=== PATIENT | female | born 1960 | race Caucasian/White ===

== ENCOUNTER 2019-05-20 04:54 | Inpatient (IN) ==
--- NOTE | 2019-04-17 08:47 | PAT Medication Instructions ---
Medication Instructions Date of Service April 17, 2019 Home Medications Probiotic 1 dose PO QAM Vitamin D3 1 dose PO QAM albuterol sulfate [ProAir HFA] 2 puff INHALATION Q6H NEEDED aspirin 81 mg PO QAM atorvastatin 40 mg PO PM budesonide-formoterol [Symbicort] 2 puff INHALATION BID cetirizine 10 mg PO DAILY NEEDED escitalopram oxalate [Lexapro] 10 mg PO QPM esomeprazole magnesium [Nexium] 20 mg PO BID furosemide 20 mg PO QAM gabapentin 600 mg PO TID levothyroxine 112 mcg PO QAM lorazepam 0.5 mg BUCCAL QAM melatonin 1 dose PO HS metoprolol tartrate 12.5 mg PO BID potassium chloride 20 meq PO TID rizatriptan [Maxalt-POWER TECHNICIAN] 5 mg PO DAILY NEEDED DO NOT take the morning of surgery Probiotic 1 dose PO QAM Vitamin D3 1 dose PO QAM cetirizine 10 mg PO DAILY NEEDED furosemide 20 mg PO QAM potassium chloride 20 meq PO TID Take morning of surgery With a small sip of water, OTHERWISE NOTHING TO EAT OR DRINK AFTER MIDNIGHT: albuterol sulfate [ProAir HFA] 2 puff INHALATION Q6H NEEDED (if needed; bring to hospital) aspirin 81 mg PO QAM budesonide-formoterol [Symbicort] 2 puff INHALATION BID esomeprazole magnesium [Nexium] 20 mg PO BID gabapentin 600 mg PO TID levothyroxine 112 mcg PO QAM lorazepam 0.5 mg BUCCAL QAM metoprolol tartrate 12.5 mg PO BID rizatriptan [Maxalt-POWER TECHNICIAN] 5 mg PO DAILY NEEDED (if needed) Take evening before surgery albuterol sulfate [ProAir HFA] 2 puff INHALATION Q6H NEEDED (if needed) atorvastatin 40 mg PO PM budesonide-formoterol [Symbicort] 2 puff INHALATION BID escitalopram oxalate [Lexapro] 10 mg PO QPM esomeprazole magnesium [Nexium] 20 mg PO BID gabapentin 600 mg PO TID melatonin 1 dose PO HS metoprolol tartrate 12.5 mg PO BID potassium chloride 20 meq PO TID rizatriptan [Maxalt-POWER TECHNICIAN] 5 mg PO DAILY NEEDED (if needed) Other Notes If you have any questions please call us at [phone] or [phone] or [phone] or [phone]
--- NOTE | 2019-04-17 11:15 | Anesthesiology Consultation ---
Date of Service April 17, 2019 Assessment & Plan (1) Encounter for pre-operative examination: - No previous anesthesia records available. Chart Review Chart Review: Acceptable Risk for Surgery and Patient seen in Pre Admission Carri ting Consults Requested cardiac (Dr. Jolley (05/06)) Patient was seen by cardiology on 05/06/19 for preoperative cardiology clearance. A stress test was ordered and done 05/15/19 to help further evaluate. A clearance note was written on 05/18 that states " Mrs. Мария Bernard is cleared to have her upcoming right total knee arthroplasty on 05/20/19." Teaching & Discussion Pre-Anesthesia Teaching/Discussion Notes: Instructed NPO after midnight before surgery, except medications with 15 cc of water. Medication instructions provided according to the PAT guidelines. History Surgery Operation Date: 05/20/19 07:00 Proposed Procedures p Right Total Knee Arthroplasty - Wesley Ballesteros MD Height/Weight Height: 5 ft 4 in Weight: 103 kg Allergies Allergy/AdvReac Type Severity Reaction Status Date / Time benzyl alcohol Allergy Hives Verified 04/16/19 16:34 ciprofloxacin Allergy Hives Verified 04/16/19 16:31 clarithromycin Allergy Hives Verified 04/16/19 16:31 doxycycline Allergy Hives Verified 04/16/19 16:31 erythromycin base Allergy Hives Verified 04/16/19 16:31 nitrofurantoin Allergy Hives Verified 04/16/19 16:31 Sulfa (Sulfonamide Allergy Hives Verified 04/16/19 16:31 Antibiotics) topiramate Allergy Hives Verified 04/16/19 16:31 codeine AdvReac Verified 04/16/19 16:31 Medications Home Medications Medication Instructions Recorded Confirmed Last Taken Probiotic 1 dose PO QAM 04/16/19 04/16/19 Unknown Vitamin D3 1 dose PO QAM 04/16/19 04/16/19 Unknown albuterol sulfate [ProAir HFA] 2 puff INHALATION Q6H PRN 04/16/19 04/16/19 Unknown aspirin 81 mg PO QAM 04/16/19 04/16/19 Unknown atorvastatin 40 mg PO PM 04/16/19 04/16/19 Unknown budesonide-formoterol [Symbicort] 2 puff INHALATION BID 04/16/19 04/16/19 Unknown cetirizine 10 mg PO DAILY PRN 04/16/19 04/16/19 Unknown escitalopram oxalate [Lexapro] 10 mg PO QPM 04/16/19 04/16/19 Unknown esomeprazole magnesium [Nexium] 20 mg PO BID 04/16/19 04/16/19 Unknown furosemide 20 mg PO QAM 04/16/19 04/16/19 Unknown gabapentin 600 mg PO TID 04/16/19 04/16/19 Unknown levothyroxine 112 mcg PO QAM 04/16/19 04/16/19 Unknown lorazepam 0.5 mg BUCCAL QAM 04/16/19 04/16/19 Unknown melatonin 1 dose PO HS 04/16/19 04/16/19 Unknown metoprolol tartrate 12.5 mg PO BID 04/16/19 04/16/19 Unknown potassium chloride 20 meq PO TID 04/16/19 04/16/19 Unknown rizatriptan [Maxalt-BARREL CLEANER] 5 mg PO DAILY PRN 04/16/19 04/16/19 Unknown Past Medical History Medical History Anxiety Asthma USES PRN INH 1 X WK ON AVG Borderline glaucoma Depression GERD (gastroesophageal reflux disease) Hyperlipidemia Hypertension Hypothyroidism Migraine Osteoarthritis Vertigo Exercise / Class Metabolic Activity II 4-5 Yardwork/Stairs/Walk up hill (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 Able to climb FOS with knee pain. Denies CP or SOB. ) Past Family History Family History Mother Family history of diabetes mellitus Grandmother (Maternal) Family history of diabetes mellitus Past Surgical History Surgical History History of D&C History of cardiac cath 09/2016 - [facility] - CP, FAILED STRESS TEST - COMPLICATIONS DURING CATH - PT REPORTS THEY NICKED ARTERY DURING PROCEDURE --> CABG - FOLLOWS W/ DR. JOLLEY ([facility]) History of cholecystectomy History of coronary artery bypass graft 09/2016 - [facility] - 3 VESSELS History of esophagogastroduodenoscopy (EGD) History of hysterectomy History of hysteroscopy History of tooth extraction History of tubal ligation Nausea and vomiting after administration of anesthetic agent Past Anesthesia History No Hx of Anesthesia Complications and No Family Hx of Anesthesia Complications History of PONV History of PONV and Hx of Motion Sickness Social History Smoking Status: Never smoker Do You Dip or Chew Tobacco: No Hx Alcohol Use: No Hx Substance Use: No substance use type: does not use Review of Systems Patient denies chest pain, shortness of breath, dyspnea on exertion, reflux, cough, wheezing, palpitations. +Joint Pain (Knee) +Acid Reflux (Controlled with current medications) Physical Exam Vital Signs BP: 137/82 P: 55 R: 16 T: 98.0 SPO2: 97% Constitutional + obese ENMT Thyromental Distance: > or= 3.5 Finger Breadths (3.5) Mallampati Class: II Neck normal visual inspection and trachea midline; neck extension not limited Respiratory normal respiratory effort Auscultation: lungs clear to auscultation bilaterally Cardiovascular Rate/Rhythm: regular rate and regular rhythm Heart Sounds: no murmur Vessels: no carotid bruit Neurologic moves all extremities Psychiatric Orientation: alert and oriented x 3 Testing Laboratory Results 04/17/19 11:28 04/17/19 11:28 PT 10.6 Seconds (9.0-12.0) 04/17/19 11:28 INR 1.0 (0.9-1.1) 04/17/19 11:28 APTT 28.4 Seconds (21.0-31.0) 04/17/19 11:28 Hemoglobin A1c 6.1 % (4.5-5.6) H 04/17/19 11:28 Urine Color Yellow 04/17/19 11:28 Urine Appearance Clear (Clear) 04/17/19 11:28 Urine pH 7.0 (4.5-7.5) 04/17/19 11:28 Ur Specific [place] 1.018 (1.000-1.030) 04/17/19 11:28 Urine Protein Negative (Negative) 04/17/19 11:28 Urine Glucose (UA) Negative (Negative) 04/17/19 11:28 Urine Ketones Negative (Negative) 04/17/19 11:28 Urine Nitrite Negative (Negative) 04/17/19 11:28 Ur Leukocyte Esterase Negative (Negative) 04/17/19 11:28 Blood Type O Positive 04/17/19 11:28 Antibody Screen NEGATIVE 04/17/19 11:28 Electrocardiogram Date: 09/23/18 Findings: + NSR @ (66) and + no change from (06/02/18) Cannot rule out anterior infarct (cited on or before 10/28/16) Chest X-Ray Date: 09/23/18 Stable radiographic appearance of chest without new parenchymal consolidation. Echocardiogram Date: 06/03/18 EF: 60% The right ventricular cavity size is normal (basal dimension <4.2cm RV apical 4 chamber view) The right ventricular systolic function is qualitatively normal No significant valvular disease is present No pericardial effusion is noted Normal IVC size and collapsability with sniff indicates a normal right atrial pressure of 3mmHg. Stress Test Date: 05/15/19 Type: nuclear Findings: + WNL; no ischemia Resting EF: 73% Gated SPECT images reveals normal myocardial thickening and wall motion. This was a walking pharmaceutical study. TID normal at 0.75. This is a normal study. Lexiscan nuclear cardiac stress test negative for ischemia. Technical quality of the study is good. EKG portion negative for ischemia.
[2019-04-17 12:53] LABS: Basophils # (auto) 0.03 K/uL (0-0.2); Basophils % (auto) 0.4 %; Eosinophils # (auto) 0.16 K/uL (0-0.5); Hematocrit (blood only) 41.3 % (37-47); Hemoglobin 14.1 g/dL (12.0-16.0); Immature Granulocytes # (auto) 0.01 K/uL (0.00-0.02); Immature Granulocytes % (auto) 0.1 %; Lymphocytes # (auto) 2.02 K/uL (1.2-3.4); Lymphocytes % (auto) 25.8 %; Mean Corpuscular Hgb Conc 34.1 g/dL (32-36); Mean Corpuscular Volume 88.2 fL (80-100); Mean Platelet Volume 10.1 fL (7.4-10.4); Monocytes # (auto) 0.52 K/uL (0.11-0.59); Monocytes % (auto) 6.6 %; Neutrophils % (auto) 65.1 %; Platelet Count 244 K/uL (130-400); RDW Coefficient of Variation 13.6 % (11.5-14.5); RDW Standard Deviation 43.8 fL (36.4-46.3); Red Blood Count 4.68 M/uL (4.2-5.4); White Blood Count 7.84 K/uL (4.8-10.8)
[2019-04-17 12:57] LABS: Appearance Urine Clear (Clear); Bilirubin Urine Negative (Negative); Blood Urine Negative (Negative); Color Urine Yellow; Glucose Urine UA Negative (Negative); Ketones Urine Negative (Negative); Leukocyte Esterase Urine Negative (Negative); Nitrite Urine Negative (Negative); Protein Urine Negative (Negative); Specific Gravity Urine 1.018 (1.000-1.030); Urobilinogen Urine Negative (Negative)
[2019-04-17 13:00] LABS: Albumin Level 3.8 gm/dl (3.4-5.0); BUN Creatinine Ratio 9.5 (10-20); Calcium 9.9 mg/dl (8.5-10.1); Creatinine Clr Calc Pharmacy 76.8 ml/min; Est GFR (African American) 77.5; Est GFR (Non-African American) 66.9
[2019-04-17 13:04] LABS: Partial Thromboplastin Time 28.4 Seconds (21.0-31.0); Prothrombin Time 10.6 Seconds (9.0-12.0)
[2019-04-17 13:49] LABS: Estimated Average Glucose 128 mg/dl; Hemoglobin A1C 6.1 % (4.5-5.6)
--- NOTE | 2019-05-19 19:20 | History and Physical Report ---
DATE OF ADMISSION: 05/20/2019 CHIEF COMPLAINT: Chronic right knee pain. HISTORY OF PRESENT ILLNESS: This is a 58-year-old female patient of Dr. Ballesteros'alo complaining of chronic right knee pain, longstanding, now progressively getting worse. The patient has failed conservative treatment including intra-articular injections, home exercise program. The patient cannot take anti-inflammatories due to the use of Plavix. The patient has increased pain with weightbearing activities and her pain does interfere with her activities of daily living. The patient has been diagnosed with end-stage osteoarthritis per clinical and radiographic exams. The patient wished to proceed with a right total knee arthroplasty. PAST MEDICAL HISTORY: Hypertension, hypercholesterolemia, asthma, sleep apnea, anxiety, hypothyroidism, acid reflux, and obesity. SOCIAL HISTORY: Nonsmoker, nondrinker. PAST SURGICAL HISTORY: Tubal ligation, cholecystectomy and triple bypass surgery. FAMILY HISTORY: Noncontributory. REVIEW OF SYSTEMS: Chronic right knee pain and instability. Otherwise, denies any shortness of breath, chest pain, nausea, vomiting or any joint complaints. MEDICATIONS: 1. Levoxyl 112 mcg daily. 2. Symbicort 160/4.5 actuation 2 puffs twice daily. 3. ProAir 90 mcg actuation 2 puffs every 4-6 hours as needed. 4. Meclizine 25 mg 3 times daily as needed. 5. Probiotic daily as needed. 6. Vitamin D3 2000 international units daily. 7. Lipitor 40 mg daily. 8. Aspirin 81 mg daily. 9. Tylenol 500 mg daily as needed. 10. Gabapentin 600 mg 3 times daily. 11. Ativan 0.5 mg 3 times daily as needed. 12. Melatonin 2.5 mg tablets 2 tablets at night. 13. Metoprolol 25 mg 1/2 tablet twice daily. 14. Zofran 4 mg every 8 hours as needed. 15. Maxalt 5 mg as needed. 16. Potassium chloride 20 mEq 3 times daily. 17. Lasix 20 mg daily. 18. Lexapro 10 mg daily. 19. Flonase 50 mcg actuation 1 spray each nostril daily. 20. Calcium 500 mg daily. 21. Nexium 20 mg twice daily. ALLERGIES: BENZOYL ALCOHOL, CLARITHROMYCIN, CODEINE, DOXYCYCLINE, ERYTHROMYCIN, PENICILLIN, SULFA, AND TOPIRAMATE. PHYSICAL EXAMINATION: GENERAL: Well-developed, well-nourished 58-year-old female in no acute distress. She is alert and oriented x3 and pleasant. HEENT: Normocephalic, atraumatic. Extraocular motions are intact. Pupils are equal and reactive to light. HEART: Regular rate and rhythm, no murmurs appreciated. LUNGS: Clear. ABDOMEN: Soft, nontender, bowel sounds present. EXTREMITIES: Right knee reveals a limited range of motion of 0-125 degrees with a varus deformity. The patient has medial joint line tenderness. She has crepitation with passive range of motion. She has 5/5 strength with pain. NEUROLOGIC: Neurovascularly, she is intact in her right lower extremity. DIAGNOSES: Right knee end-stage osteoarthritis, hypertension, hypercholesterolemia, asthma, sleep apnea, anxiety, hypothyroidism, osteoarthritis, acid reflux, obesity. PLAN: The patient was advised of her diagnosis. Indications, risks, benefits, postop course have all been reviewed. The patient wished to proceed with a right total knee arthroplasty. Necessary consent forms, preoperative testing and clearances will be obtained.
[2019-05-20] MEDS ORDERED: SCOPOLAMINE 1.5 MG TDSY TD SCH (06:00)
[2019-05-20] MEDS ORDERED: GABAPENTIN 600 MG DOSE PO SCH (06:00)
[2019-05-20] MEDS ORDERED: ACETAMINOPHEN 500 MG TAB PO SCH (06:00)
[2019-05-20] MEDS ORDERED: LR 500ML BOLUS, THEN 15ML/HR IV SCH (06:00)
[2019-05-20] MEDS ORDERED: dexAMETHasone 4 MG TAB PO SCH (06:00)
[2019-05-20] MEDS ORDERED: ROPIVACAINE 0.5% HCL/PF 150 MG, BUPIVACAINE 0.5% MPF 30 ML, EPINEPHrine 30MG/30ML (OR U... INSTIL SCH (06:00)
[2019-05-20] MEDS ORDERED: FAMOTIDINE 20 MG TAB PO SCH (06:00)
[2019-05-20] MEDS ORDERED: VANCOMYCIN HCL 1,500 MG in SODIUM CHLORIDE 0.9% 500 ML IV SCH ×2 (06:00→17:00)
[2019-05-20] MEDS ORDERED: METOCLOPRAMIDE HCL 10 MG TABLET PO SCH (06:00)
[2019-05-20] MEDS ORDERED: BUPIVACAINE 0.5 % 5 MG/1 ML PF 10ML VIAL ONE (06:21)
[2019-05-20] MEDS ORDERED: ROPIVACAINE 0.5% 5 MG/ML 30 ML VIAL ONE (06:22)
[2019-05-20] MEDS ORDERED: MIDAZOLAM HCL 1 MG/ML 2ML VIAL ONE ×2 (06:32)
[2019-05-20] MEDS ORDERED: fentaNYL citrate 100 MCG/2 ML VIAL ONE (06:32)
[2019-05-20] MEDS ORDERED: ePHEDrine sulfate 50 MG/ML AMP IV PRN (06:39)
[2019-05-20] MEDS ORDERED: ATROPINE SULFATE 0.1 MG/ML 10ML SYR IV PRN (06:39)
[2019-05-20] MEDS ORDERED: ONDANSETRON INJ 2 MG/ML 2 ML VIAL IV PRN (06:39)
[2019-05-20] MEDS ORDERED: BACITRACIN INJ 50,000 UNIT VIAL ONE (06:53)
[2019-05-20] MEDS ORDERED: ORTHO JOINT ANESTHETIC ONE (06:53)
--- NOTE | 2019-05-20 07:09 | History & Physical Bridge Note ---
Date of Service May 20, 2019 History & Physical Bridge Note I have examined the patient, reviewed the History & Physical and in the interval since the performance of the History & Physical I have noted the following changes of clinical significance: no changes noted
[2019-05-20] MEDS ORDERED: raNITIdine HCl 25 MG/ML VIAL IV ONE (07:53)
[2019-05-20] MEDS ORDERED: PROPOFOL IV EMULSION 10 MG/ML 20 ML VIAL IV ONE (07:53)
[2019-05-20] MEDS ORDERED: LIDOCAINE HCL 2% 2 ML VIAL/AMP(20MG/ML) INFIL ONE (07:53)
[2019-05-20] MEDS ORDERED: METOCLOPRAMIDE HCL INJ 5 MG/ML 2 ML VIAL ONE (07:54)
[2019-05-20] MEDS ORDERED: ePHEDrine sulfate 50 MG/ML AMP ONE (07:54)
[2019-05-20] MEDS ORDERED: ONDANSETRON INJ 2 MG/ML 2 ML VIAL ONE (07:54)
[2019-05-20] MEDS ORDERED: WATER, STERILE FOR INJ 10 ML VIAL ONE (07:54)
[2019-05-20] MEDS ORDERED: DEXAMETHASONE SOD INJ 4 MG/ML VIAL ONE (07:54)
--- NOTE | 2019-05-20 09:15 | Post Operative Brief Note ---
Immediate Post Op Note v1 Date of Surgery May 20, 2019 Pre & Post Diagnosis Operation Date: 05/20/19 07:00 Pre-Op Diagnosis: Right Knee Osteoarthritis Post-Op Diagnosis: Right Knee Osteoarthritis Procedure Operation Date: 05/20/19 07:00 Actual Procedures p Right Total Knee Arthroplasty(Right) - Wesley Ballesteros MD Surgeon Wesley Ballesteros MD Anesthesia Director Gregg NICHOLAS Estimated Blood Loss 5 Findings Consistent with Post-Op Diagnosis Specimens Bone cuts Drains Hemovac Drain (dual trocar) Anesthesia Type MAC Spinal Regional Complications none Disposition Accompanied Patient To Recovery: No Disposition: Recovery Room Overlapping Procedure I was immediately available: during the entire case.
--- NOTE | 2019-05-20 09:26 | Operative Report ---
Post Operative Report Pre & Post Diagnosis Operation Date: 05/20/19 07:00 Pre-Op Diagnosis: Right Knee Osteoarthritis, obesity BMI 39 Post-Op Diagnosis: Right Knee Osteoarthritis, obesity BMI 39 Procedure Operation Date: 05/20/19 07:00 Actual Procedures p Right Total Knee Arthroplasty(Right), increased level difficulty BMI 39- Wesley Ballesteros MD Surgeon Wesley Ballesteros MD [place] Strip Inspector Gregg NCIHOLAS Estimated Blood Loss 5 Findings Consistent with Post-Op Diagnosis Specimens Bone cuts Drains 2 Hemovac Anesthesia Type MAC Spinal Regional Complications none Disposition Accompanied Patient To Recovery: No Disposition: Recovery Room Indications 58-year-old female with progressive osteoarthritis in her right knee. Does have obesity BMI 39. She failed all conservative management. X-rays demonstrate she is [id number] medial compartment on weightbearing films and has mild to moderate patellofemoral osteoarthritis Description of Procedure Patient taken to the operating room placed supine on the operating table and anesthetized under spinal MAC regional anesthesia. Exam under anesthesia demonstrated good range of motion of varus knee obesity. A pneumatic tourniquet was placed about the obese thigh of the right lower extremity. The right lower extremity was prepped and draped in usual fashion. Leg was elevated exs anguinated with an Esmarch bandage and the pneumatic was raised to 350 mm mercury. An anterior incision was made across the right knee. The skin was incised longitudinally subcutaneous flaps were elevated and an incision was made through the medial retinaculum extending up into the mid third of the quadriceps tendon and extended down to the medial tibial tubercle. Intra-articular findings demonstrated medial compartment osteoarthritis [id number] and grade 2-3 patellofemoral osteoarthritis. The knee was exposed by excising the infrapatellar fat pad, excising the meniscal remnants and anterior cruciate cruciate ligament, PCL was recessed off the tibia the left intact, any inflamed synovial tissue was resected. The fat pad over the anterior femur was resected for placement of the component in that area. The lateral synovial bands were release. Appropriate releases were performed to balance ligaments. The femur was exposed. The custom femoral cutting block was pinned in position. The distal femoral cutting block was applied. The distal femoral cut was made with the oscillating saw. The size 8 4-in-1 cutting block was placed. The anterior and posterior chamfer cuts were made. The knee was extended and a subperiosteal peel lateral release was performed around the patella. The patella width was measured and width was reproduced using freehand cut technique. The 32 x 8.5 millimeter symmetrical patella was used. 3 drill holes are made for the pegs. The tibia was exposed. A custom tibial cutting block was positioned and drill holes were made for the cutting guide. Cutting guide was placed and the proximal cut was made with the oscillating saw. All osteophytes were resected. The lamina cougar hunter was used to assess ligamentous balance and the ligaments were balanced in extension and flexion. This required medial posterior medial release of ligaments and capsule. The tibia was reexposed and measured for a size D tibial component. This was externally ro tated in line with the tibial tubercle and the fixation pins were drilled. The proximal tibia was fashioned with the drill and punch. The size 8 femoral trial was inserted. The trial MC inserts were used. The 10 mm insert gave balanced ligaments through full range of motion. The patella tracked centrally. the trials were removed. The orthomix anesthetic cocktail was injected per protocol. The knee was then copiously irrigated with pulsatile lavage antibiotic solution with bacitracin. The final components were cemented with Simplex cement. The final components were Domenic persona right 8 narrow CR femoral component, D tibial component, 10 mm MC polyethylene and 32 x 8.5 mm symmetrical patella. While the cement cured with the knee in full extension the Betadine soak was used per protocol. After the cement cured, the knee joint was copiously irrigated with antibiotic solution with bacitracin. 2 drains were brought out laterally and connected to a Hemovac. The quadriceps tendon and medial retinaculum were closed with interrupted [id number] #1 Vicryl sutures. The knee was taken through a full range of motion and repair was secure. The subcutaneous tissues were closed with 2-0 Vicryl sutures and skin was closed with roseline. Sterile dressings were applied and the patient tolerated the procedure well. There was a level of increased difficulty due to the BMI of 39 with increased difficulty with exposure retraction. Gregg NICHLOAS my physician assistant federal public defender, assisted in soft tissue retraction instrument management leg positioning the closure and will participate in the postoperative care of the patient. I attest to the content of the Intraoperative Record and any orders documented therein. Any exceptions are noted below.
--- NOTE | 2019-05-20 10:02 | XRay Report ---
XR knee RT 2V routine HISTORY: 58 years-old Female Surgical Post Op right knee total joint arthroplasty. History of degene rative joint disease COMPARISON: None available TECHNIQUE: 2 views of the right knee FINDINGS: Right knee total joint arthroplasty and patella resurfacing is noted with satisfactory alignment. No acute fracture. Anterior midline skin roseline are noted with expected postsurgical soft tissue swelli ng and deep tissue air. Surgical drainage catheter is also noted. IMPRESSION: Satisfactory alignment of the right knee total joint arthroplasty. The above report was generated using voice recognition software. It may contain grammatical, syntax o r spelling errors. Electronically signed by: Mariano Montilla M.D. 05/20/2019 10:00 AM
--- NOTE | 2019-05-20 10:08 | Anesthesiology Progress Note ---
Date of Service May 20, 2019 Anesthesia Post Procedure Vital Signs Vital Signs: Temp Pulse Pulse Resp BP Pulse Ox 05/20/19 10:00 37.0 C 82 18 132/75 94 05/20/19 09:50 37.0 C 81 18 137/73 93 05/20/19 09:40 83 18 135/73 93 05/20/19 09:30 84 18 128/60 97 05/20/19 09:23 36.8 C 87 18 119/66 95 05/20/19 05:42 36.4 C L 71 20 169/89 H 96 Transfer of Care Handoff Completed per policy Notes Mental Status: alert / awake / arousable Patient Amnestic to Procedure: Yes Nausea / Vomiting: adequately controlled Pain: adequately controlled Airway Patency, RR, SpO2: stable & adequate BP & HR: stable & adequate Hydration State: stable & adequate Neuraxial Anesthesia: was administered and sensory block is resolving Anesthetic Complications: no major complications apparent and Pt Satisfied with anesthetic care
[2019-05-20] MEDS ORDERED: SODIUM CHLORIDE 0.9% 1000ML 1,000 ML IV SCH (10:31)
[2019-05-20] MEDS ORDERED: CETIRIZINE HCL 10 MG TABLET PO PRN (10:31)
[2019-05-20] MEDS ORDERED: MAGNESIUM HYDROXIDE SUSP 30 ML UDC PO PRN (10:31)
[2019-05-20] MEDS ORDERED: NALOXONE HCL 0.4 MG/1 ML VIAL/CARP IV PRN (10:31)
[2019-05-20] MEDS ORDERED: BISACODYL 10 MG SUPP PR PRN (10:31)
[2019-05-20] MEDS ORDERED: VANCOMYCIN CONSULT ACTIVE PRN (10:31)
[2019-05-20] MEDS ORDERED: HYDROmorphone INJ 0.5 MG/0.5 ML SYR IV PRN (10:31)
[2019-05-20] MEDS ORDERED: RIZATRIPTAN BENZOATE MLT 10 MG TAB PO PRN (10:59)
[2019-05-20] MEDS ORDERED: ALBUTEROL HFA INHALER 8.5 GM INH PRN (11:00)
--- NOTE | 2019-05-20 11:12 | Consultation ---
Date of Consultation May 20, 2019 Assessment & Plan (1) Primary osteoarthritis of right knee: POD #0 S/P R TKA by Dr. Ballesteros EBL 5ml tolerated procedure well pain/wound management per ortho activity and therapy as directed by ortho ASA BID for dvt ppx per ortho Encourage incentive spirometry q1wa follow H/H (2) CAD (coronary artery disease): No chest pain or shortness of breath Continue medical management with ASA, statin, metoprolol (3) Hypertension: Blood pressure stable continue metoprolol Will hold lasix 20mg daily and KCL until volume status and renal fxn evaluated in am (4) Hyperlipidemia: Continue statin (5) Pre-diabetes: A1c preoperatively 6.1 Encourage lifestyle modification (6) Hypothyroidism: Continue levothyroxine (7) Asthma: No acute exacerbation Continue Symbicort (8) Depression: Continue Lexapro Mood stable (9) DVT prophylaxis: ASA twice daily per Ortho, SCD/teds Disposition: Per primary Follow-up: PCP Dr. Mejía was upon discharge Patient was seen and examined in collaboration with Dr. Lee, please see addendum Starting 05/21/2019 patient will be under the care of Dr. Lee Thank you for this consultation. We will follow the patient with you during their hospital stay. You can reach a member of the [facility] 13/05 via pager @ [phone]. Supervising Physician Co-Signing Physician Notes I have seen and examined the patient and have discussed the case with the provider above. I agree with the assessment and plan as stated. The patient is a 58-year-old female who underwent a right total knee arthroplasty by Dr. Ballesteros this morning. Blood pressure is soft and agree with holding Lasix until tomorrow morning. She is stable from a COPD and CAD standpoint. She denies any chest pain, shortness of breath or other issue at this time. Knee pain postoperatively is well controlled. She is tolerating p.o. She has begun to bear weight per postoperative orthopedic instructions. Physical exam reveals a hemodynamically stable and afebrile patient who was oxygenating 96% on room air. Lungs are clear to auscultations and heart sounds reveal S1/S2 present without evidence of heart murmur. Abdomen is soft and nontender. Lower extremities are neurovascular intact. We appreciate the consultation and will follow this patient during her hospitalization. DO Jesus History of Present Illness Requesting Physician: Dr. Ballesetros Reason for Consultation: Postop medical management Attending Physician: Wesley Ballesteros MD History of Present Illness This is a 58-year-old female who has a significant past medical history of CAD with history of CABG x3 09/2016 (LINDQUIST-LAD, SVG-OM1, SVG-OM2), HTN, HLD, prediabetes, hypothyroidism, asthma, GERD, migraine who presents to [facility] for elective right TKA. Patient had end-stage progressive right knee osteoarthritis. She tolerated procedure well and offers no postoperative concerns or complaints. She currently denies any right lower extremity pain secondary to effects of anesthesia. Denies fever, chills, sweats, lightheadedness, dizziness, chest pain, shortness of breath, palpitations, nausea, vomiting, abdominal pain. She had 2 BMs this morning prior to arrival and is urinating without difficulty. She did have mild postoperative nausea but this is resolving. Allergies Allergy/AdvReac Type Severity Reaction Status Date / Time benzyl alcohol Allergy Hives Verified 05/20/19 05:30 ciprofloxacin Allergy Hives Verified 05/20/19 05:30 clarithromycin Allergy Hives Verified 05/20/19 05:30 doxycycline Allergy Hives Verified 05/20/19 05:30 erythromycin base Allergy Hives Verified 05/20/19 05:30 nitrofurantoin Allergy Hives Verified 05/20/19 05:30 Sulfa (Sulfonamide Allergy Hives Verified 05/20/19 05:30 Antibiotics) topiramate Allergy Hives Verified 05/20/19 05:30 codeine AdvReac Verified 05/20/19 05:30 Home Medications Home Medications Medication Instructions Recorded Confirmed Type Probiotic 1 dose PO QAM 04/16/19 05/20/19 History albuterol sulfate [ProAir HFA] 2 puff INHALATION Q6H PRN 04/16/19 05/20/19 History aspirin 81 mg PO QAM 04/16/19 05/20/19 History atorvastatin 40 mg PO PM 04/16/19 05/20/19 History budesonide-formoterol [Symbicort] 2 puff INHALATION BID 04/16/19 05/20/19 History cetirizine 10 mg PO DAILY PRN 04/16/19 05/20/19 History escitalopram oxalate [Lexapro] 10 mg PO QPM 04/16/19 05/20/19 History esomeprazole magnesium [Nexium] 20 mg PO BID 04/16/19 05/20/19 History furosemide 20 mg PO QAM 04/16/19 05/20/19 History gabapentin 600 mg PO TID 04/16/19 05/20/19 History levothyroxine 112 mcg PO QAM 04/16/19 05/20/19 History lorazepam 0.5 mg BUCCAL QAM 04/16/19 05/20/19 History melatonin 1 dose PO HS 04/16/19 05/20/19 History metoprolol tartrate 12.5 mg PO BID 04/16/19 05/20/19 History potassium chloride 20 meq PO TID 04/16/19 05/20/19 History rizatriptan [Maxalt-CREDIT UNION EXAMINER] 5 mg PO DAILY PRN 04/16/19 05/20/19 History cholecalciferol (vitamin D3) 2,000 unit PO DAILY 05/20/19 05/20/19 History [Vitamin D3] Patient History Medical History CAD (coronary artery disease) Vertigo Asthma USES PRN INH 1 X WK ON AVG Hypertension Hyperlipidemia Migraine Anxiety Depression Borderline glaucoma Hypothyroidism GERD (gastroesophageal reflux disease) Surgical History History of cardiac cath 09/2016 - [facility] - CP, FAILED STRESS TEST - COMPLICATIONS DURING CATH - PT REPORTS THEY NICKED ARTERY DURING PROCEDURE --> CABG - FOLLOWS W/ DR. METZ ([facility]) [facility] of [facility] - 3 VESSELS History of esophagogastroduodenoscopy (EGD) History of hysterectomy History of D&C History of tubal ligation History of hysteroscopy History of cholecystectomy History of tooth extraction Nausea and vomiting after administration of anesthetic agent Family History Mother Stroke Heart disease Hypertension Diabetes Father Prostate cancer Brother Kidney transplant recipient Hypertension Sister No problems noted. Social History Preferred Language: Pashto Communication Ability: Effective Assistant Oceanographer Required: No Beliefs That Will Affect Care: None Current Living Situation: Spouse current occupation: works at [employer] Other Information That Helps Us Care for You: No Feels Safe at Home: Yes Safety Concerns: Feels Safe At This Time Smoking Status: Never smoker Do You Dip or Chew Tobacco: No Second Hand Exposure: No Hx Alcohol Use: No Hx Substance Use: No Review of Systems Review of Systems: As noted per HPI, 10 systems reviewed and negative unless noted above. Physical Exam Physical Exam: Gen: WD/WN, F, NAD, sitting up in bed, pleasant, conversing easily Head: Normocephalic, Atraumatic Eyes: Sclera normal, no conjunctival injection, PERRLA, EOMI ENT: Gross hearing intact, normal pharynx, mucous membranes moist Neck: supple, no adenopathy, No JVD, no bruit, Resp: Clear to auscultation b/l, no wheeze, rales, rhonchi. 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 Extremities: No edema bilaterally, SCD/TEDS in place Skin: warm, moist, no rash, negative turgor, cap refill < 2sec Neuro: Alert and oriented x 3, speech normal, good mood/affect, cran nerve 2-12 intact grossly : deferred Results & Data Vital Signs (Past 12 Hours) Vital Signs Temp Pulse Pulse Resp BP Pulse Ox 05/20/19 10:40 36.6 C 71 16 126/77 94 05/20/19 10:10 36.8 C 80 18 132/76 97 05/20/19 10:00 37.0 C 82 18 132/75 94 05/20/19 09:50 37.0 C 81 18 137/73 93 05/20/19 09:40 83 18 135/73 93 05/20/19 09:30 84 18 128/60 97 05/20/19 09:23 36.8 C 87 18 119/66 95 05/20/19 05:42 36.4 C L 71 20 169/89 H 96 Laboratory Results Preoperative lab work CBC: WBC 7.84, hemoglobin 14.1, hematocrit 41.3, platelet 244 BMP: Sodium 141, potassium 4.0, chloride 105, CO2 29, BUN 9, creatinine 0.94, glucose 87 A1c: 6.1 Diagnostic Findings Preoperative chest x-ray revealed no acute cardiopulmonary abnormality, left mid to lower lobe pleural-parenchymal scarring stable from prior imaging Medications Administered Scopolamine (Transderm-Scop) 1.5 mg TD PREOP VANDANA Stop: 05/20/19 18:00 Last Admin: 05/20/19 05:42 Dose: 1.5 mg Documented by: [id number] Discontinued Medications Acetaminophen (Tylenol) 1,000 mg PO PREOP VANDANA Stop: 05/20/19 18:00 Last Admin: 05/20/19 10:53 Dose: Not Given Documented by: [id number] Bacitracin (Bacitracin) Confirm Administered Dose 50,[address]TE .[facility] Stop: 05/20/19 06:54 Last Admin: 05/20/19 08:53 Dose: 50,000 units Documented by: [id number] Dexamethasone (Decadron) 8 mg PO PREOP VANDANA Stop: 05/20/19 18:00 Last Admin: 05/20/19 06:35 Dose: Not Given Documented by: [id number] Famotidine (Pepcid) 20 mg PO PREOP VANDANA Stop: 05/20/19 18:00 Last Admin: 05/20/19 06:36 Dose: Not Given Documented by: [id number] Gabapentin (Neurontin) 600 mg PO PREOP VANDANA Stop: 05/20/19 18:00 Last Admin: 05/20/19 06:36 Dose: Not Given Documented by: [id number] Lactated Ringer's (Lr) 1,000 mls @ 15 mls/hr IV .Q24H VANDANA Stop: 05/20/19 18:00 Last Infusion: 05/20/19 07:17 Dose: 0 mls/hr Documented by: [id number] Admin: 05/20/19 05:41 Dose: 15 mls/hr Documented by: [id number] Vancomycin HCl 1,500 mg/ (Sodium Chloride) 530 mls @ 200 mls/hr IV PREOP VANDANA Stop: 05/20/19 18:00 Last Infusion: 05/20/19 10:53 Dose: 0 mls/hr Documented by: [id number] Admin: 05/20/19 05:41 Dose: 200 mls/hr Documented by: [id number] Ropivacaine 150 mg/Bupivacaine HCl 30 ml/Epinephrine HCl 0.15 mg/Ketorolac Tromethamine 30 mg/Dexamethasone 4 mg/ Ketamine HCl 10 mg/ Clonidine HCl 100 mcg/ Sodium Chloride 93.35 mls @ 0 mls/hr INSTIL PREOP VANDANA Stop: 05/20/19 06:01 Last Admin: 05/20/19 08:52 Dose: Not Given Documented by: [id number] Metoclopramide HCl (Reglan) 10 mg PO PREOP VANDANA Stop: 05/20/19 18:00 Last Admin: 05/20/19 06:36 Dose: Not Given Documented by: [id number] Miscellaneous (Ortho Joint Anesthetic) Confirm Administered Dose 1 ea .ROUTE .[facility]-MED ONE Stop: 05/20/19 06:54 Last Admin: 05/20/19 08:53 Dose: 1 ea Documented by: [id number] ECG Rate (beats per minute): 58 Rhythm: sinus bradycardia Findings: + nonspecific-ST abn Comparison ECG Date: from (09/23/18) Change: no significant change
[2019-05-20] MEDS: ONDANSETRON INJ 2 MG/ML 2 ML VIAL IV PRN (13:56)
[2019-05-20] MEDS ORDERED: POTASSIUM CHLORIDE 20 MEQ TABCR PO SCH (14:00)
[2019-05-20] MEDS: GABAPENTIN 600 MG TAB PO SCH ×2 (14:29→20:50)
[2019-05-20] MEDS: ACETAMINOPHEN 500 MG TAB PO SCH ×2 (14:30→21:01)
[2019-05-20] MEDS: CHECK SCOPOLAMINE PATCH PLACEMENT SCH (15:36)
[2019-05-20] MEDS: DOCUSATE SODIUM 100 MG CAP PO SCH (20:47)
[2019-05-20] MEDS: ASPIRIN 81 MG CHEW PO SCH (20:49)
[2019-05-20] MEDS: LANSOPRAZOLE 30 MG SOLTAB PO SCH (20:49)
[2019-05-20] MEDS: METOPROLOL TARTRATE 25 MG TAB PO SCH (20:50)
[2019-05-20] MEDS: BUDESONIDE/FORMOTEROL FUMARATE 160/4.5 60 PUFFS/INHALER INH SCH (20:50)
[2019-05-20] MEDS: ATORVASTATIN 40 MG TAB PO SCH (20:50)
[2019-05-20] MEDS: SENNA 8.6 MG TAB PO SCH (20:50)
[2019-05-20] MEDS: ESCITALOPRAM OXALATE 10 MG TAB PO SCH (20:50)
[2019-05-20] MEDS ORDERED: PANTOprazole 40 MG TAB PO SCH (21:00)
[2019-05-20] MEDS ORDERED: MELATONIN PO SCH (21:00)
[2019-05-20] MEDS ORDERED: ASPIRIN 81 MG ECTAB PO SCH (21:00)
[2019-05-21] MEDS: CHECK SCOPOLAMINE PATCH PLACEMENT SCH (00:02)
[2019-05-21] MEDS: ACETAMINOPHEN 500 MG TAB PO SCH ×3 (05:48→21:17)
[2019-05-21] MEDS: LEVOTHYROXINE SODIUM 112 MCG TABLET PO SCH (05:48)
[2019-05-21 06:43] LABS: Hematocrit (blood only) 33.9 % (37-47); Hemoglobin 11.4 g/dL (12.0-16.0); Mean Corpuscular Hgb Conc 33.6 g/dL (32-36); Mean Corpuscular Volume 87.6 fL (80-100); Mean Platelet Volume 9.8 fL (7.4-10.4); Platelet Count 230 K/uL (130-400); RDW Coefficient of Variation 13.5 % (11.5-14.5); RDW Standard Deviation 43.5 fL (36.4-46.3); Red Blood Count 3.87 M/uL (4.2-5.4)
[2019-05-21 07:22] LABS: BUN Creatinine Ratio 11.6 (10-20); Calcium 8.6 mg/dl (8.5-10.1); Creatinine Clr Calc Pharmacy 67.7 ml/min; Est GFR (Non-African American) 57.8; Potassium 3.8 mmol/L (3.5-5.1)
--- NOTE | 2019-05-21 08:05 | Orthopedic Progress Note ---
Date of Service May 21, 2019 Assessment & Plan (1) Total knee replacement status: Expected progress status post knee replacement. PT pain management plan for outpatient PT after discharge Subjective No complaints Physical Exam Physical Exam: Dressing dry and intact CSM intact Results & Data Vital Signs (Past 12 Hours) Vital Signs Temp Pulse Resp BP Pulse Ox 05/21/19 06:42 36.7 C 70 18 106/65 96 05/21/19 03:45 36.7 C 61 16 111/70 96 05/20/19 23:19 36.8 C 62 16 106/63 94 05/20/19 20:46 66 109/64
[2019-05-21] MEDS: ONDANSETRON INJ 2 MG/ML 2 ML VIAL IV PRN (08:09)
--- NOTE | 2019-05-21 08:51 | Hospitalist Progress Note ---
Date of Service May 21, 2019 Assessment & Plan (1) Primary osteoarthritis of right knee: POD #1 S/P R TKA by Dr. Ballesteros EBL 5ml; drain output 880ml tolerated procedure well pain/wound management per ortho activity and therapy as directed by ortho ASA BID for dvt ppx per ortho Encourage incentive spirometry q1wa H/H decreased to 11.4 and 33.9 (preop 14.1 and 41.3) likely partially delusional secondary to IVF and expected blood loss from surgery (2) Lightheadedness: This morning patient received 0.5 mg of IV Dilaudid and immediately after developed nausea and vertigo-like sensation When in bathroom this morning getting cleaned up she experienced lightheadedness, like she could pass out and return to her bed. She was noted to have a blood pressure of 90 over 50s with improvement of 100s over 60s when sitting. Upon my examination her blood pressure was 117/73, HR 59. Physical exam was unremarkable Feel symptoms likely secondary to administration of IV Dilaudid so we will discontinue this Will have nursing staff obtain orthostatic vital signs and if positive will administer bolus of IVF, currently patient appears euvolemic Obtain EKG due to patient's concern with her history of CAD but do not feel there is any signs or symptoms of ACS We will continue to hold patient's Lasix and will also hold her a.m. dose of metoprolol tartrate due to some bradycardia (3) Leukocytosis: WBC 15k likely secondary to preop administration of Decadron No signs or symptoms of infection Monitor (4) CAD (coronary artery disease): No chest pain or shortness of breath Continue medical management with ASA, statin, metoprolol (5) Hypertension: Blood pressure stable, hold a.m. dose of metoprolol Continue to hold Lasix and KCl and reevaluate volume status and renal function in a.m. (6) Hyperlipidemia: Continue statin (7) Pre-diabetes: A1c preoperatively 6.1 Encourage lifestyle modification Fasting blood sugar 108 (8) Hypothyroidism: Continue levothyroxine (9) Asthma: No acute exacerbation Continue Symbicort (10) Depression: Continue Lexapro Mood stable (11) DVT prophylaxis: ASA twice daily per Ortho, SCD/teds Disposition: Per primary Follow-up: PCP Dr. Mejía was upon discharge Patient was seen and examined in collaboration with Dr. Lee, please see addendum Thank you for this consultation. We will follow the patient with you during their hospital stay. You can reach a member of the [facility] Team 13/05 via pager @ [phone]. Supervising Physician Co-Signing Physician Notes I have seen and examined the patient and have discussed the case with the provider above. I agree with the assessment and plan as stated. She was re- evaluated post treatment above and was feeling back to baseline. Pain is well managed. Knee drain still in place. Cont current management. DO Terell Lee Patient was seen and examined in room 301. Follow-up right TKA POD #1. "I am not doing well this morning." Patient elicits that she woke up this morning having increased right knee pain. She did not want to take any oral medications on an empty stomach and opted for IV Dilaudid. She tolerated IV Dilaudid in the past but immediately after IV administration she began to feel dizzy, "like room spinning," and nauseated. She then opted to go into bathroom to get cleaned up and while standing she began to feel lightheaded like she could, "pass out." She returned to her bed and the feeling of lightheadedness resolved. Nursing staff took blood pressure in which it was 90 over 50s and after a few minutes improved to 100s over 60s. "I was doing so well until now and I currently feel anxious." She denies overall feeling feverish, chills or sweats, chest pain, palpitations, shortness of breath, GUILLEN, hemoptysis, emesis, abdominal pain. She is passing flatus. She had 2 BMs yesterday. She tolerated her diet well yesterday but did not eat much breakfast this morning due to feeling nauseated. She did receive IV Zofran and feels her nausea is subsiding. Review of Systems Review of Systems: As noted per HPI, 10 systems reviewed and negative unless noted above. Physical Exam Physical Exam: Gen: WD/WN, female, sitting up in bed, appears anxious, NAD, A&O x3 HEENT: Normocephalic, atraumatic, conjunctivae moist, sclerae anicteric, mucous membranes moist. Lung: Clear to Auscultation bilaterally, no wheezes/rales/rhonchi Heart: Bradycardic rate, regular rhythm, no murmurs, rubs, or gallops Abdomen: Soft, NT, ND +BS x 4 Extremities: RLE dressing CDI, mild RLE edema, no erythema or warmth, no LLE edema +hemovac Skin: Warm, no rash, negative turgor. Blood pressure on my assessment was 117/73 in the right upper extremity, pulse 59, oxygen 99% on room air Results & Data Vital Signs (Past 12 Hours) Vital Signs Temp Pulse Resp BP Pulse Ox 05/21/19 06:42 36.7 C 70 18 106/65 96 05/21/19 03:45 36.7 C 61 16 111/70 96 05/20/19 23:19 36.8 C 62 16 106/63 94 05/20/19 20:46 66 109/64 Laboratory Results Short CBC 04/17/19 05/21/19 05/21/19 Range/Units 11:28 06:18 06:18 WBC 15.00 H (4.8-10.8) K/uL Hgb 11.4 L (12.0-16.0) g/dL Hct 33.9 L (37-47) % Plt Count 230 (130-400) K/uL Creatinine 0.94 1.06 (0.6-1.2) mg/dl BMP 05/21/19 06:18 Sodium 140 Potassium 3.8 Chloride 107 Carbon Dioxide 27 BUN 12 Creatinine 1.06 Glucose 108 H Calcium 8.6 Medications Administered Acetaminophen (Tylenol) 1,000 mg PO Q8 VANDANA Stop: 06/19/19 13:59 Last Admin: 05/21/19 05:48 Dose: 1,000 mg Documented by: [id number] Admin: 05/20/19 21:01 Dose: 1,000 mg Documented by: [id number] Admin: 05/20/19 14:30 Dose: 1,000 mg Documented by: [id number] Aspirin (Aspirin Chew) 81 mg PO BID VANDANA Stop: 06/19/19 20:59 Last Admin: 05/20/19 20:49 Dose: 81 mg Documented by: [id number] Atorvastatin Calcium (Lipitor) 40 mg PO PM VANDANA Stop: 06/19/19 20:59 Last Admin: 05/20/19 20:50 Dose: 40 mg Documented by: [id number] Budesonide/Formoterol Fumarate (Symbicort 160mcg/4.5mcg) 2 puffs INH BID VANDANA Stop: 06/19/19 20:59 Last Admin: 05/20/19 20:50 Dose: 2 puffs Documented by: [id number] Docusate Sodium (Colace) 100 mg PO BID VANDANA Stop: 06/19/19 20:59 Last Admin: 05/20/19 20:47 Dose: Not Given Documented by: [id number] Escitalopram Oxalate (Lexapro Tab) 10 mg PO QPM VANDANA Stop: 06/19/19 20:59 Last Admin: 05/20/19 20:50 Dose: 10 mg Documented by: [id number] Gabapentin (Neurontin) 600 mg PO TID VANDANA Stop: 06/19/19 13:59 Last Admin: 05/20/19 20:50 Dose: 600 mg Documented by: [id number] Admin: 05/20/19 14:29 Dose: 600 mg Documented by: [id number] Lansoprazole (Prevacid) 30 mg PO BID VANDANA Stop: 06/19/19 20:59 Last Admin: 05/20/19 20:49 Dose: 30 mg Documented by: [id number] Levothyroxine Sodium (Synthroid) 112 mcg PO DAILYBB VANDANA Stop: 06/20/19 06:29 Last Admin: 05/21/19 05:48 Dose: 112 mcg Documented by: [id number] Metoprolol Tartrate (Lopressor) 12.5 mg PO BID VANDANA Stop: 06/19/19 20:59 Last Admin: 05/20/19 20:50 Dose: 12.5 mg Documented by: [id number] Ondansetron HCl (Zofran) 4 mg IV Q6H PRN PRN Reason: Nausea Stop: 06/19/19 13:47 Last Admin: 05/21/19 08:09 Dose: 4 mg Documented by: [id number] Admin: 05/20/19 13:56 Dose: 4 mg Documented by: [id number] Sennosides (Senokot) 17.2 mg PO HS [facility] Stop: 06/19/19 20:59 Last Admin: 05/20/19 20:50 Dose: 17.2 mg Documented by: [id number] Discontinued Medications Acetaminophen (Tylenol) 1,000 mg PO PREOP VANDANA Stop: 05/20/19 18:00 Last Admin: 05/20/19 10:53 Dose: Not Given Documented by: [id number] Bacitracin (Bacitracin) Confirm Administered Dose 50,000 units .ROUTE .[facility] Stop: 05/20/19 06:54 Last Admin: 05/20/19 08:53 Dose: 50,000 units Documented by: [id number] Dexamethasone (Decadron) 8 mg PO PREOP VANDANA Stop: 05/20/19 18:00 Last Admin: 05/20/19 06:35 Dose: Not Given Documented by: [id number] Famotidine (Pepcid) 20 mg PO PREOP VANDANA Stop: 05/20/19 18:00 Last Admin: 05/20/19 06:36 Dose: Not Given Documented by: [id number] Gabapentin (Neurontin) 600 mg PO PREOP VANDANA Stop: 05/20/19 18:00 Last Admin: 05/20/19 06:36 Dose: Not Given Documented by: [id number] Hydromorphone HCl (Dilaudid) 0.5 mg IV Q4H PRN PRN Reason: Pain Stop: 06/03/19 10:30 Last Admin: 05/21/19 06:08 Dose: 0.5 mg Documented by: [id number] Lactated Ringer's (Lr) 1,000 mls @ 15 mls/hr IV .Q24H VANDANA Stop: 05/20/19 18:00 Last Infusion: 05/20/19 07:17 Dose: 0 mls/hr Documented by: [id number] Admin: 05/20/19 05:41 Dose: 15 mls/hr Documented by: [id number] Vancomycin HCl 1,500 mg/ (Sodium Chloride) 530 mls @ 200 mls/hr IV PREOP VANDANA Stop: 05/20/19 18:00 Last Infusion: 05/20/19 10:53 Dose: 0 mls/hr Documented by: [id number] Admin: 05/20/19 05:41 Dose: 200 mls/hr Documented by: [id number] Ropivacaine 150 mg/Bupivacaine HCl 30 ml/Epinephrine HCl 0.15 mg/Ketorolac Tromethamine 30 mg/Dexamethasone 4 mg/ Ketamine HCl 10 mg/ Clonidine HCl 100 mcg/ Sodium Chloride 93.35 mls @ 0 mls/hr INSTIL PREOP VANDANA Stop: 05/20/19 06:01 Last Admin: 05/20/19 08:52 Dose: Not Given Documented by: [id number] Sodium Chloride (Nss 1000ml) 1,000 mls @ 100 mls/hr IV .Q10H VANDANA Stop: 05/21/19 06:00 Last Infusion: 05/20/19 19:56 Dose: 0 mls/hr Documented by: [id number] Infusion: 05/20/19 18:41 Dose: 100 mls/hr Documented by: [id number] Infusion: 05/20/19 16:33 Dose: 0 mls/hr Documented by: [id number] Admin: 05/20/19 12:06 Dose: 100 mls/hr Documented by: [id number] Vancomycin HCl 1,500 mg/ (Sodium Chloride) 530 mls @ 250 mls/hr IV Q12H VANDANA Stop: 05/20/19 19:08 Last Infusion: 05/20/19 18:41 Dose: 0 mls/hr Documented by: [id number] Admin: 05/20/19 16:33 Dose: 250 mls/hr Documented by: [id number] Metoclopramide HCl (Reglan) 10 mg PO PREOP VANDANA Stop: 05/20/19 18:00 Last Admin: 05/20/19 06:36 Dose: Not Given Documented by: [id number] Miscellaneous (Check Scopolamine Patch Placement) 1 ea N/A QS VANDANA Stop: 05/21/19 07:59 Last Admin: 05/21/19 00:02 Dose: 1 ea Documented by: [id number] Admin: 05/20/19 15:36 Dose: 1 ea Documented by: [id number] Miscellaneous (Ortho Joint Anesthetic) Confirm Administered Dose 1 ea .ROUTE .[facility]-MED ONE Stop: 05/20/19 06:54 Last Admin: 05/20/19 08:53 Dose: 1 ea Documented by: [id number] Scopolamine (Transderm-Scop) 1.5 mg TD PREOP VANDANA Stop: 05/20/19 18:00 Last Admin: 05/20/19 05:42 Dose: 1.5 mg Documented by: [id number]
[2019-05-21] MEDS ORDERED: LORazepam 0.5 MG TAB PO SCH (09:00)
[2019-05-21] MEDS ORDERED: FUROSEMIDE 20 MG TAB PO SCH (09:00)
[2019-05-21] MEDS ORDERED: SODIUM CHLORIDE 0.9% 500 ML IV SCH (09:15)
[2019-05-21] MEDS: LANSOPRAZOLE 30 MG SOLTAB PO SCH ×2 (10:32→20:18)
[2019-05-21] MEDS: ASPIRIN 81 MG CHEW PO SCH ×2 (10:32→20:18)
[2019-05-21] MEDS: BUDESONIDE/FORMOTEROL FUMARATE 160/4.5 60 PUFFS/INHALER INH SCH ×2 (10:32→20:18)
[2019-05-21] MEDS: DOCUSATE SODIUM 100 MG CAP PO SCH ×2 (10:33→20:17)
[2019-05-21] MEDS: LACTOBACILLUS ACIDOPHILUS (FLORANEX) TAB PO SCH (10:33)
[2019-05-21] MEDS: CHOLECALCIFEROL (VITAMIN D) 400 UNITS TABLET PO SCH (10:34)
[2019-05-21] MEDS: GABAPENTIN 600 MG TAB PO SCH ×3 (10:34→20:18)
[2019-05-21] MEDS: MULTIVITAMIN TAB PO SCH (10:34)
[2019-05-21] MEDS: OXYCODONE HCL IR 5 MG TAB (IMMEDIATE RELEASE) PO PRN ×2 (12:58→18:15)
[2019-05-21] MEDS: LORazepam 0.5 MG TAB PO PRN (14:19)
[2019-05-21] MEDS: METOPROLOL TARTRATE 25 MG TAB PO SCH (20:14)
[2019-05-21] MEDS: SENNA 8.6 MG TAB PO SCH (20:18)
[2019-05-21] MEDS: ESCITALOPRAM OXALATE 10 MG TAB PO SCH (20:18)
[2019-05-21] MEDS: ATORVASTATIN 40 MG TAB PO SCH (20:18)
[2019-05-22] MEDS: LEVOTHYROXINE SODIUM 112 MCG TABLET PO SCH (05:48)
[2019-05-22] MEDS: ACETAMINOPHEN 500 MG TAB PO SCH ×2 (05:48→13:17)
[2019-05-22 05:56] LABS: Hemoglobin 10.2 g/dL (12.0-16.0); Mean Corpuscular Hgb Conc 32.9 g/dL (32-36); Mean Corpuscular Volume 88.8 fL (80-100); Platelet Count 199 K/uL (130-400); RDW Coefficient of Variation 13.6 % (11.5-14.5); RDW Standard Deviation 43.9 fL (36.4-46.3); Red Blood Count 3.49 M/uL (4.2-5.4); White Blood Count 9.93 K/uL (4.8-10.8)
[2019-05-22 06:33] LABS: BUN Creatinine Ratio 12.2 (10-20); Calcium 8.5 mg/dl (8.5-10.1); Creatinine Clr Calc Pharmacy 73.2 ml/min; Est GFR (African American) 73.7; Est GFR (Non-African American) 63.6; Potassium 3.4 mmol/L (3.5-5.1)
[2019-05-22] MEDS: LORazepam 0.5 MG TAB PO PRN (07:09)
--- NOTE | 2019-05-22 07:36 | Orthopedic Progress Note ---
Date of Service May 22, 2019 Assessment & Plan (1) Total knee replacement status: POD #2 Right TKA PT/ OT DVT proph- ASA D/C planning- Home w OPPT when stable. As per medicine. Will re eval for D/C later today. Subjective POD #2 States she still has nausea, feels a bit shaky, thinks it is due to pain medication. EKG ordered by medicine showed sinus marta- improved since yesterday, otherwise EKG unchanged since 2017. Denies SOB, CP. Physical Exam Physical Exam: Right knee silverlon dressing c/d/i, no drainage, no calf tenderness, toes/ankle mobile, A&Ox3. Results & Data Vital Signs (Past 12 Hours) Vital Signs Temp Pulse Resp BP Pulse Ox 05/22/19 06:49 36.7 C 75 18 147/78 H 97 05/21/19 23:30 36.9 C 79 16 113/71 95 05/21/19 20:11 36.8 C 71 16 123/70 98
[2019-05-22] MEDS ORDERED: POTASSIUM CHLORIDE 20 MEQ TABCR PO STA (08:18)
[2019-05-22] MEDS: OXYCODONE HCL IR 5 MG TAB (IMMEDIATE RELEASE) PO PRN ×2 (08:45→13:15)
[2019-05-22] MEDS: METOPROLOL TARTRATE 25 MG TAB PO SCH (08:46)
[2019-05-22] MEDS: MULTIVITAMIN TAB PO SCH (08:46)
[2019-05-22] MEDS: GABAPENTIN 600 MG TAB PO SCH ×2 (08:46→13:17)
[2019-05-22] MEDS: DOCUSATE SODIUM 100 MG CAP PO SCH (08:47)
[2019-05-22] MEDS: ASPIRIN 81 MG CHEW PO SCH (08:47)
[2019-05-22] MEDS: LACTOBACILLUS ACIDOPHILUS (FLORANEX) TAB PO SCH (08:47)
[2019-05-22] MEDS: LANSOPRAZOLE 30 MG SOLTAB PO SCH (08:47)
[2019-05-22] MEDS: BUDESONIDE/FORMOTEROL FUMARATE 160/4.5 60 PUFFS/INHALER INH SCH (08:48)
[2019-05-22] MEDS: CHOLECALCIFEROL (VITAMIN D) 400 UNITS TABLET PO SCH (08:48)
--- NOTE | 2019-05-22 09:57 | Hospitalist Progress Note ---
Date of Service May 22, 2019 Assessment & Plan (1) Primary osteoarthritis of right knee: POD #2 S/P R TKA by Dr. Ballesteros EBL 5ml; drain output 1055ml tolerated procedure well pain/wound management per ortho activity and therapy as directed by ortho ASA BID for dvt ppx per ortho Encourage incentive spirometry q1wa H/H 10.2 and 31.0 (preop 14.1 and 41.3) likely partially delusional secondary to IVF and expected blood loss from surgery Patient is medically stable and cleared for discharge to home (2) Hypokalemia: K 3.4, received 20meq KCL resume scheduled KCL and lasix (3) Lightheadedness: Symptoms are likely secondary to administration of IV Dilaudid as well as mild hypovolemia with orthostatic hypotension Symptoms resolved with 500 mL IV fluid bolus and discontinuation of IV narcotics Patient feeling much improved this morning (4) Leukocytosis: Resolved likely secondary to preop administration of Decadron No signs or symptoms of infection Monitor (5) CAD (coronary artery disease): No chest pain or shortness of breath Continue medical management with ASA, statin, metoprolol (6) Hypertension: Blood pressure much improved we will resume home Lasix and KCl, continue metoprolol (7) Hyperlipidemia: Continue statin (8) Pre-diabetes: A1c preoperatively 6.1 Encourage lifestyle modification Fasting blood sugar 102 (9) Hypothyroidism: Continue levothyroxine (10) Asthma: No acute exacerbation Continue Symbicort (11) Depression: Continue Lexapro Mood stable (12) DVT prophylaxis: ASA twice daily per Ortho, SCD/teds Disposition: Per primary Follow-up: PCP Dr. Mejía was upon discharge Patient was seen and examined in collaboration with Dr. Vogt, please see addendum Thank you for this consultation. We will follow the patient with you during their hospital stay. You can reach a [facility] via pager @ [phone]. Supervising Physician Co-Signing Physician Notes Pt was seen and examined. Agreed with Jeannie VASQUEZ exam, assessment and plan. Pt said that she feels much better today. S/P day #2 R TKA performed by Dr. Ballesteros. No post op complication. She said that pain is controlled. Continue PT/OT. Fall precaution. Replaced K today. Continue monitor electrolytes and h/h. MD Torie Subjective Patient was seen and examined in room 301. Follow-up right TKA POD #1. Patient is sitting up in bedside chair. She feels well this morning and much improved. She did have mild nausea first thing this morning, but thought it was related to empty stomach, improved with eating breakfast. She had a good night last night. Denies fever, chills, sweats, lightheadedness, dizziness, chest alma n, shortness of breath, nausea, vomiting, diarrhea, abdominal pain. She has not had a BM since admission, but she did have to BMs prior to arrival. She states this is not unusual for her. She denies any excessive bloating. She is passing flatus. Appetite is back to baseline. Review of Systems Review of Systems: As noted per HPI, 10 systems reviewed and negative unless noted above. Physical Exam Physical Exam: Gen: WD/WN, female, sitting up in bedside chair, NAD, A&O x3 HEENT: Normocephalic, atraumatic, conjunctivae moist, sclerae anicteric, mucous membranes moist. Lung: Clear to Auscultation bilaterally, no wheezes/rales/rhonchi Heart: Regular rate, regular rhythm, no murmurs, rubs, or gallops Abdomen: Obese abdomen, soft, NT, ND +BS x 4 Extremities: Right lower extremity edema, no erythema, warmth, negative Homans. No left lower extremity edema. Right TKA dressing CDI Skin: Warm, no rash, negative turgor. Results & Data Vital Signs (Past 12 Hours) Vital Signs Temp Pulse Resp BP Pulse Ox 05/22/19 06:49 36.7 C 75 18 147/78 H 97 05/21/19 23:30 36.9 C 79 16 113/71 95 Laboratory Results Short CBC 05/22/19 Range/Units 05:21 WBC 9.93 (4.8-10.8) K/uL Hgb 10.2 L (12.0-16.0) g/dL Hct 31.0 L (37-47) % Plt Count 199 (130-400) K/uL BMP 05/22/19 05:21 Sodium 143 Potassium 3.4 L Chloride 109 H Carbon Dioxide 30 BUN 12 Creatinine 0.98 Glucose 102 H Calcium 8.5
--- NOTE | 2019-06-02 22:07 | Discharge Summary ---
HISTORY OF PRESENT ILLNESS: This is a 58-year-old female patient of Dr. Ballesteros's complaining of chronic right knee pain, longstanding, now progressively getting worse. The patient failed conservative treatment and elected to proceed with a right total knee arthroplasty. PAST MEDICAL HISTORY: Hypertension, hypercholesterolemia, asthma, sleep apnea, anxiety, hypothyroidism, acid reflux, and obesity. POSTOPERATIVE COURSE: The patient underwent a right total knee arthroplasty on 05/20/2019. She was followed closely with medical consultation, DVT prophylaxis in the form of aspirin, physical therapy and pain control. Postoperative day #2, the patient stated "she felt shaky and had nausea". Medical consultation did an EKG, all laboratory studies were normal. The patient did stated that this was an one-time episode. Her symptoms were resolved on discharge and again her EKG and lab studies were normal on discharge. The patient was discharged home on postoperative day #2. PHYSICAL EXAMINATION: Right knee Silverlon dressing was clean, dry and intact. There was no redness or drainage. She had no calf tenderness. Negative Homans sign. Neurologically and neurovascularly she is intact in her right lower extremity. Her toes and ankle were mobile. DIAGNOSES: Status post right total knee arthroplasty with a history of hypertension, hypercholesterolemia, asthma, sleep apnea, anxiety, hypothyroidism, acid reflux, and obesity. PLAN: The patient was discharged home with outpatient physical therapy. The patient will continue her preadmission medications with the addition of pain medication and aspirin twice daily for DVT prophylaxis. The patient will follow up with Dr. Ballesteros as scheduled as an outpatient.
== END 2019-05-22 19:00 | disposition home or self-care (01) | DRG 470 ==
LOC: ASU 04:54 → 3E 09:28
DX: M17.11 Unilateral primary osteoarthritis, right knee; E03.9 Hypothyroidism, unspecified; I10 Essential (primary) hypertension; F32.9 Major depressive disorder, single episode, unspecified; J45.909 Unspecified asthma, uncomplicated; K21.9 Gastro-esophageal reflux disease without esophagitis; E87.6 Hypokalemia; R73.03 Prediabetes; R42 Dizziness and giddiness; D72.829 Elevated white blood cell count, unspecified; I25.10 Atherosclerotic heart disease of native coronary artery without angina pectoris; Z79.82 Long term (current) use of aspirin; T38.0X5A Adverse effect of glucocorticoids and synthetic analogues, initial encounter; Z79.899 Other long term (current) drug therapy; E66.9 Obesity, unspecified; E78.5 Hyperlipidemia, unspecified; Z68.39 Body mass index [BMI] 39.0-39.9, adult